=== PATIENT | female | born 1945 | race Caucasian/White ===

== ENCOUNTER → 2016-11-17 | Outpatient (CLI) | payer OTHER, BC ==
[~2016-11-17] VITALS: Ht 165.1 cm; Wt 104.5 kg
[~2016-11-17] MED LIST: CELEXA20 MG PO; DITROPAN XL10 MG PO; GLUCOPHAGE500 MG PO; KLONOPIN0.5 M1 PO; LIPITOR40 MG PO; SINGULAIR10 MG PO; SLEEP AID50 MG PO; VITAMIN D32000 UNI1 PO; WOMEN'S DAILY1 EAC4 PO
[2016-11-17 12:36] LABS: POINT-OF-CARE METER ID UU14107333
== END | disposition home or self-care (01) ==
LOC: AMB 11:49
PROVIDERS: Surgery
PROC: 0DJ08ZZ Inspection of Upper Intestinal Tract, Via Natural or Artificial Opening Endoscopic (ICD-10-PCS; principal; 2016-11-17)
DX: K29.70 Gastritis, unspecified, without bleeding (principal); K21.9 Gastro-esophageal reflux disease without esophagitis; E11.9 Type 2 diabetes mellitus without complications; I10 Essential (primary) hypertension; F41.8 Other specified anxiety disorders; E78.00 Pure hypercholesterolemia, unspecified; Z79.84 Long term (current) use of oral hypoglycemic drugs; Z87.891 Personal history of nicotine dependence
CPT/HCPCS: 82948; 93005

== ENCOUNTER 2017-06-10 21:10 | Inpatient (IN) | payer OTHER, BC ==
[~2017-06-10] VITALS: Ht 165.1 cm; Wt 102.2 kg
[~2017-06-10 21:10] MED LIST changes: +DITROPAN5 MG PO; +FISH OIL 1,0001 EA10 PO; +GLUCOPHAGE1000 MG PO; +KERATIN PO; +MEGA BIOTIN10000 MCG PO; +METFORMIN HCL1000 M3 PO; +NIZORAL SHAMPO120 ML TP; +OMEPRAZOLE40 M1 PO; +TURMERIC 500 M1 EACH PO; +VICTOZA SC
[2017-06-11 06:59] VITALS: BP 128/60
[2017-06-11 14:01] VITALS: BP 190/79
[2017-06-11 19:52] VITALS: BP 147/70
[2017-06-12 00:22] VITALS: BP 139/71
[2017-06-12 03:52] VITALS: BP 144/63
[2017-06-12 07:44] LABS: HEMATOCRIT 33.2 % (36.0-46.0); HEMOGLOBIN 10.9 G/DL (11.9-15.5); MCH 30.9 PG (29.0-34.0); MCHC 32.8 G/DL (30.0-36.0); MCV 94.1 FL (83-99); PLATELET COUNT 171 K/uL (156-360); RBC DIS.WIDTH-CV 12.9 % (11.8-14.6); RBC DIS.WIDTH-SD 44.2 % (39-53); RED BLOOD COUNT 3.53 M/uL (3.80-5.20); WHITE BLOOD COUNT 5.6 K/uL (4.1-10.2)
[2017-06-12 08:00] VITALS: BP 133/63
== END 2017-06-12 13:56 | disposition home or self-care (01) | DRG 621 ==
LOC: ENRESERV 21:10 → 2SOUTH 06-11 06:11 → ENRESERV 06-11 11:26 → 2SOUTH 06-11 11:47 → 2EAST 06-11 14:00 → ENPENDDIS 06-12 → 2EAST 06-12 13:56
PROVIDERS: Surgery
PROC: 0DB64Z3 Excision of Stomach, Percutaneous Endoscopic Approach, Vertical (ICD-10-PCS; principal; 2017-06-11)
DX: E66.01 Morbid (severe) obesity due to excess calories (principal); Z68.37 Body mass index [BMI] 37.0-37.9, adult; E11.9 Type 2 diabetes mellitus without complications; E78.5 Hyperlipidemia, unspecified; K21.9 Gastro-esophageal reflux disease without esophagitis; F41.9 Anxiety disorder, unspecified; K76.0 Fatty (change of) liver, not elsewhere classified; Z87.891 Personal history of nicotine dependence; N39.3 Stress incontinence (female) (male); Z91.041 Radiographic dye allergy status; Z79.84 Long term (current) use of oral hypoglycemic drugs
CPT/HCPCS: 82948; 85027; C9113; J0131; J0690; J1100; J1170; J1644; J1650; J2405; J3480; J7120; S0020